=== PATIENT | female | born 1990 | race Asian ===

== ENCOUNTER 2023-05-31 14:38 | Emergency (ER) | payer BC ==
[~2023-05-31] VITALS: Ht 167.6 cm; Wt 91.0 kg
[2023-05-31 14:51] VITALS: BP 130/85; TEMP 98.9; O2SAT 99
[2023-05-31] MEDS ORDERED: IPRATROPIUM BROMIDE (0.02%) 0.5MG/2.5ML NEB HHN STA (15:07)
[2023-05-31] MEDS ORDERED: ALBUTEROL (0.083%) 2.5MG/3ML NEB HHN STA (15:07)
[2023-05-31] MEDS ORDERED: DEXAMETHASONE 4MG TABLET PO NR (15:15)
[2023-05-31] MEDS ORDERED: DEXAMETHASONE 0.5MG/5ML ORAL SYR PO ONE (15:15)
[2023-05-31 15:31] LABS: UCG SCREEN NEGATIVE
[2023-05-31 15:32] LABS: UCG QC LOT# 743958
[2023-05-31 15:34] LABS: CLARITY URINE CLEAR (CLEAR); COLOR URINE YELLOW (YELLOW); GLUCOSE URINE NEGATIVE (NEGATIVE); KETONES URINE NEGATIVE (NEGATIVE); LEUKOCYTE ESTERASE URINE NEGATIVE (NEGATIVE); NITRITE URINE NEGATIVE (NEGATIVE); OCCULT BLOOD URINE NEGATIVE (NEGATIVE); PH URINE 5.5 (4.5-8.0); PROTEIN URINE NEGATIVE (NEGATIVE); SPECIFIC GRAVITY URINE 1.021 (1.005-1.030); UROBILINOGEN URINE 0.2 E.U./dL (0.2-1.0)
[2023-05-31 15:40] VITALS: PULSE 91; RESP 18
[2023-05-31] MEDS ORDERED: PENICILLIN G BENZATHINE 1,200,000 UNITS/2ML SYR IM STA (16:58)
== END 2023-05-31 17:47 | disposition home or self-care (01) ==
LOC: ER 14:38
DX: J45.901 Unspecified asthma with (acute) exacerbation (principal); Z20.822 Contact with and (suspected) exposure to COVID-19
CPT/HCPCS: 81003; 81025; 87430; 87070; 87804 ×2; 94640; 96372; 99283; 87426; J8540; J0561; Z7610 ×3; C9803